=== PATIENT | male | born 1950 | race African-American/Black ===

== ENCOUNTER 2017-02-26 09:47 | Inpatient (IN) | payer MEDICARE, MEDICAID ==
[~2017-02-26] VITALS: Ht 182.9 cm; Wt 95.3 kg
[~2017-02-26 09:47] MED LIST: FINA5TAB11; HY1; HYDR1POW18; NIFE60TA18 PO; TAMS-11
[2017-02-26] MEDS ORDERED: MORPHINE SULFATE 4 MG/ML CPJ (NOT FOR IM USE) IV STA (10:31)
[2017-02-26] MEDS ORDERED: ONDANSETRON HCL 4MG/2ML VIAL IV STA (10:31)
[2017-02-26 11:20] LABS: BASOPHILS % 0.4 % (0.0-2.0); EOSINOPHILS % 0.1 % (0.0-5.0); HEMATOCRIT. 32.2 % (42.0-52.0); HEMOGLOBIN. 10.2 g/dL (14.0-18.0); MEAN CORPUSCULAR HEMOGLOBIN 19.6 pg (28.0-32.0); MEAN CORPUSCULAR VOLUME 61.7 fL (80.0-94.0); MONOCYTES % 9.8 % (2.0-8.0); NEUTROPHILS % 75.7 % (40.0-76.0); RED BLOOD CELL COUNT 5.22 mill/uL (4.7-6.1); RED CELL DISTRIBUTION WIDTH 18.2 % (11.6-14.6)
[2017-02-26 11:27] LABS: INR 1.1; PROTHROMBIN TIME 11.1 sec
[2017-02-26 11:36] LABS: CARBON DIOXIDE 28 mEq/L (21-32); CHLORIDE 102 mEq/L (98-107)
[2017-02-26 11:53] LABS: KETONES URINE TRACE (NEGATIVE); LEUKOCYTE ESTERASE URINE 1+ (NEGATIVE); NITRITE URINE NEGATIVE (NEGATIVE); OCCULT BLOOD URINE 3+ (NEGATIVE); PROTEIN URINE 4+ (NEGATIVE); SPECIFIC GRAVITY URINE 1.023 (1.005-1.030); UROBILINOGEN URINE 0.2 E.U./dL (0.2-1.0)
[2017-02-26 11:54] LABS: CLARITY URINE TURBID (CLEAR); COLOR URINE BLOODY (YELLOW)
[2017-02-26 12:12] LABS: PLATELET ESTIMATE NORMAL
[2017-02-26 12:13] LABS: PLATELET 182 x1000/uL (130-400)
[2017-02-26] MEDS ORDERED: KCL 10MEQ/50ML PREMIX 50 ML IV ONE (12:30)
[2017-02-26 12:46] LABS: BASOPHILS % 0.3 % (0.0-2.0); EOSINOPHILS % 0.1 % (0.0-5.0); HEMATOCRIT. 31.6 % (42.0-52.0); HEMOGLOBIN. 9.9 g/dL (14.0-18.0); LYMPHOCYTES % 9.9 % (20.0-50.0); MEAN CORPUSCULAR HEMOGLOBIN 19.5 pg (28.0-32.0); MEAN PLATELET VOLUME 8.6 fl (7.4-10.4); MONOCYTES % 8.6 % (2.0-8.0); NEUTROPHILS % 81.1 % (40.0-76.0); PLATELET 179 x1000/uL (130-400); RED BLOOD CELL COUNT 5.09 mill/uL (4.7-6.1); RED CELL DISTRIBUTION WIDTH 18.5 % (11.6-14.6)
[2017-02-26] MEDS ORDERED: CEFTRIAXONE 1 G PREMIX 50 ML IV ONE (14:00)
[2017-02-27 05:22] LABS: BASOPHILS % 0.5 % (0.0-2.0); EOSINOPHILS % 0.5 % (0.0-5.0); HEMATOCRIT. 32.9 % (42.0-52.0); HEMOGLOBIN. 10.3 g/dL (14.0-18.0); LYMPHOCYTES % 26.5 % (20.0-50.0); MEAN CORPUSCULAR HEMOGLOBIN 19.6 pg (28.0-32.0); MEAN CORPUSCULAR VOLUME 62.3 fL (80.0-94.0); MONOCYTES % 11.7 % (2.0-8.0); NEUTROPHILS % 60.8 % (40.0-76.0); RED BLOOD CELL COUNT 5.27 mill/uL (4.7-6.1); RED CELL DISTRIBUTION WIDTH 18.1 % (11.6-14.6)
[2017-02-27 05:42] LABS: CARBON DIOXIDE 29 mEq/L (21-32); CHLORIDE 106 mEq/L (98-107)
[2017-02-27 08:39] LABS: MEAN PLATELET VOLUME 8.7 fl (7.4-10.4); PLATELET 179 x1000/uL (130-400)
[2017-02-27] MEDS ORDERED: NIFEDIPINE 10MG CAPSULE PO SCH (09:00)
[2017-02-27] MEDS: HYDROCODONE/ACETAMINOPHEN 5/325MG TABLET PO PRN ×2 (09:11→17:58)
[2017-02-27] MEDS: AMLODIPINE 10MG TABLET PO SCH (09:19)
[2017-02-27] MEDS: TAMSULOSIN HCL 0.4MG SR CAPSULE PO SCH (09:20)
[2017-02-27] MEDS: CEFTRIAXONE 1 G PREMIX 50 ML IV SCH (09:20)
[2017-02-27] MEDS: POTASSIUM CHLORIDE 20MEQ TABLET SR PO SCH (11:28)
[2017-02-27] MEDS ORDERED: TAMSULOSIN HCL 0.4MG SR CAPSULE PO SCH (13:00)
[2017-02-27 15:43] LABS: CARBON DIOXIDE 28 mEq/L (21-32); CHLORIDE 107 mEq/L (98-107)
[2017-02-27] MEDS: BICALUTAMIDE 50 MG TABLET PO SCH (16:02)
[2017-02-28] MEDS: HYDROCODONE/ACETAMINOPHEN 5/325MG TABLET PO PRN (00:21)
[2017-02-28] MEDS: POTASSIUM CHLORIDE 20MEQ TABLET SR PO SCH (09:13)
[2017-02-28] MEDS: TAMSULOSIN HCL 0.4MG SR CAPSULE PO SCH (09:14)
[2017-02-28] MEDS: AMLODIPINE 10MG TABLET PO SCH (09:15)
[2017-02-28] MEDS: CEFTRIAXONE 1 G PREMIX 50 ML IV SCH (09:15)
[2017-02-28] MEDS: BICALUTAMIDE 50 MG TABLET PO SCH (09:41)
[2017-02-28] MEDS ORDERED: POTASSIUM CHLORIDE 20MEQ TABLET SR PO NR (20:30)
[2017-02-28] MEDS ORDERED: POTASSIUM CHLORIDE 8 MEQ TABLET.SA PO SCH (22:00)
[2017-03-01 06:32] LABS: BASOPHILS % 0.4 % (0.0-2.0); EOSINOPHILS % 1.2 % (0.0-5.0); HEMATOCRIT. 27.9 % (42.0-52.0); HEMOGLOBIN. 8.8 g/dL (14.0-18.0); LYMPHOCYTES % 29.8 % (20.0-50.0); MEAN CORPUSCULAR HEMOGLOBIN 19.4 pg (28.0-32.0); MEAN CORPUSCULAR VOLUME 61.8 fL (80.0-94.0); MONOCYTES % 10.5 % (2.0-8.0); NEUTROPHILS % 58.1 % (40.0-76.0); RED BLOOD CELL COUNT 4.52 mill/uL (4.7-6.1); RED CELL DISTRIBUTION WIDTH 18.7 % (11.6-14.6)
[2017-03-01 07:15] LABS: CARBON DIOXIDE 25 mEq/L (21-32); CHLORIDE 108 mEq/L (98-107)
[2017-03-01 07:44] LABS: MEAN PLATELET VOLUME 8.7 fl (7.4-10.4)
[2017-03-01 07:45] LABS: PLATELET 182 x1000/uL (130-400)
[2017-03-01] MEDS: BICALUTAMIDE 50 MG TABLET PO SCH (09:50)
[2017-03-01] MEDS: CEFTRIAXONE 1 G PREMIX 50 ML IV SCH (09:50)
[2017-03-01] MEDS: TAMSULOSIN HCL 0.4MG SR CAPSULE PO SCH (09:51)
[2017-03-01] MEDS: AMLODIPINE 10MG TABLET PO SCH (09:51)
[2017-03-01 21:30] VITALS: BP 135/76
== END 2017-03-01 23:19 | disposition home or self-care (01) | DRG 501 ==
LOC: ER 09:47 → 5WST 14:37 → EDBEDREQ 14:41 → EDBEDREQSVC 14:41 → ENRESERV 15:57
PROC: 0T2BX0Z Change Drainage Device in Bladder, External Approach (ICD-10-PCS; principal; 2017-02-26)
DX: N40.1 Benign prostatic hyperplasia with lower urinary tract symptoms (principal); N13.8 Other obstructive and reflux uropathy; I10 Essential (primary) hypertension; N43.3 Hydrocele, unspecified; N39.0 Urinary tract infection, site not specified; E87.6 Hypokalemia; R31.0 Gross hematuria; K57.90 Diverticulosis of intestine, part unspecified, without perforation or abscess without bleeding; D50.0 Iron deficiency anemia secondary to blood loss (chronic); Z85.46 Personal history of malignant neoplasm of prostate; Z86.73 Personal history of transient ischemic attack (TIA), and cerebral infarction without residual deficits; Z79.899 Other long term (current) drug therapy
CPT/HCPCS: 36415; 51702; 74176; 80053; 81001; 84132; 84153; 85025; 85610; 86850; 86900; 86920; 96361; 96365; 99285; J0696; J2270; J2405; J3480; J7050; A4315

== ENCOUNTER 2017-03-03 21:00 | Emergency (ER) | payer MEDICARE, MEDICAID ==
[~2017-03-03] VITALS: Ht 182.9 cm; Wt 96.0 kg
[2017-03-04 01:01] LABS: BASOPHILS % 0.7 % (0.0-2.0); EOSINOPHILS % 1.3 % (0.0-5.0); HEMATOCRIT. 26.8 % (42.0-52.0); HEMOGLOBIN. 8.5 g/dL (14.0-18.0); LYMPHOCYTES % 25.3 % (20.0-50.0); MEAN CORPUSCULAR HEMOGLOBIN 19.5 pg (28.0-32.0); MEAN CORPUSCULAR VOLUME 61.9 fL (80.0-94.0); MEAN PLATELET VOLUME 8.6 fl (7.4-10.4); MONOCYTES % 14.1 % (2.0-8.0); NEUTROPHILS % 58.6 % (40.0-76.0); PLATELET 190 x1000/uL (130-400); RED BLOOD CELL COUNT 4.33 mill/uL (4.7-6.1)
[2017-03-04 01:05] LABS: CHLORIDE 106 mEq/L (98-107)
[2017-03-04 01:08] LABS: PLATELET ESTIMATE NORMAL
[2017-03-04 01:12] LABS: CARBON DIOXIDE 25 mEq/L (21-32)
[2017-03-04 03:49] VITALS: BP 138/78
== END 2017-03-04 04:20 | disposition home or self-care (01) ==
LOC: ER 03-04 00:25
DX: T83.81XA Embolism due to genitourinary prosthetic devices, implants and grafts, initial encounter (principal); R31.9 Hematuria, unspecified; I10 Essential (primary) hypertension; Y92.89 Other specified places as the place of occurrence of the external cause
CPT/HCPCS: 36415; 80048; 85025; 99284; A4217; Z7610; A4315

== ENCOUNTER 2017-03-04 14:05 | Emergency (ER) | payer MEDICARE, MEDICAID ==
[~2017-03-04] VITALS: Ht 182.9 cm; Wt 96.0 kg
[2017-03-04 16:26] LABS: BASOPHILS % 0.4 % (0.0-2.0); EOSINOPHILS % 0.5 % (0.0-5.0); HEMATOCRIT. 24.9 % (42.0-52.0); LYMPHOCYTES % 19.4 % (20.0-50.0); MEAN CORPUSCULAR HEMOGLOBIN 19.7 pg (28.0-32.0); MEAN CORPUSCULAR VOLUME 61.2 fL (80.0-94.0); MEAN PLATELET VOLUME 8.7 fl (7.4-10.4); MONOCYTES % 10.5 % (2.0-8.0); NEUTROPHILS % 69.2 % (40.0-76.0); PLATELET 195 x1000/uL (130-400); RED BLOOD CELL COUNT 4.06 mill/uL (4.7-6.1); RED CELL DISTRIBUTION WIDTH 18.8 % (11.6-14.6)
[2017-03-04 16:31] LABS: INR 1.1; PROTHROMBIN TIME 11.4 sec
[2017-03-04 16:33] LABS: CARBON DIOXIDE 27 mEq/L (21-32); CHLORIDE 104 mEq/L (98-107)
[2017-03-04 16:43] LABS: COLOR URINE BLOODY (YELLOW); KETONES URINE 1+ (NEGATIVE); LEUKOCYTE ESTERASE URINE 2+ (NEGATIVE); NITRITE URINE POSITIVE (NEGATIVE); OCCULT BLOOD URINE 3+ (NEGATIVE); PROTEIN URINE 4+ (NEGATIVE); SPECIFIC GRAVITY URINE 1.037 (1.005-1.030)
[2017-03-04 16:44] LABS: CLARITY URINE TURBID (CLEAR)
[2017-03-05 03:05] VITALS: BP 129/70
== END 2017-03-05 03:31 | disposition home or self-care (01) ==
LOC: ER 15:25
DX: R31.0 Gross hematuria (principal); D64.9 Anemia, unspecified; I10 Essential (primary) hypertension
CPT/HCPCS: 36415; 36430; 80048; 81001; 85025; 85610; 86850; 86900; 86901; 86920; 99285; J7040; P9016

== ENCOUNTER 2021-12-30 06:09 | Emergency (ER) | payer MEDICARE, MEDICAID ==
[~2021-12-30] VITALS: Ht 182.9 cm; Wt 96.0 kg
[2021-12-30 06:24] VITALS: BP 137/80
[2021-12-30 08:40] LABS: BASOPHILS % 0.5 % (0.0-2.0); EOSINOPHILS % 0.6 % (0.0-5.0); HEMATOCRIT. 35.2 % (42.0-52.0); HEMOGLOBIN. 11.6 g/dL (14.0-18.0); LYMPHOCYTES % 31.1 % (20.0-50.0); MEAN CORPUSCULAR HEMOGLOBIN 22.4 pg (28.0-32.0); MEAN CORPUSCULAR VOLUME 68.2 fL (80.0-94.0); MONOCYTES % 9.8 % (2.0-8.0); PLATELET 160 x1000/uL (130-400); RED BLOOD CELL COUNT 5.16 mill/uL (4.7-6.1); RED CELL DISTRIBUTION WIDTH 16.2 % (11.6-14.6)
[2021-12-30 08:53] LABS: CHLORIDE 109 mEq/L (98-107)
[2021-12-30 09:11] LABS: CLARITY URINE CLEAR (CLEAR); COLOR URINE YELLOW (YELLOW); KETONES URINE NEGATIVE (NEGATIVE); LEUKOCYTE ESTERASE URINE NEGATIVE (NEGATIVE); NITRITE URINE NEGATIVE (NEGATIVE); OCCULT BLOOD URINE NEGATIVE (NEGATIVE); PH URINE 5.5 (4.5-8.0); PROTEIN URINE NEGATIVE (NEGATIVE); SPECIFIC GRAVITY URINE 1.012 (1.005-1.030); UROBILINOGEN URINE 0.2 E.U./dL (0.2-1.0)
[2021-12-30 09:18] LABS: PLATELET ESTIMATE NORMAL
[2021-12-30] MEDS ORDERED: FAMO20TA8 MT (10:23)
== END 2021-12-30 10:41 | disposition home or self-care (01) ==
LOC: ER 06:09
DX: K92.2 Gastrointestinal hemorrhage, unspecified (principal); I10 Essential (primary) hypertension
CPT/HCPCS: 36415; 80053; 81003; 84484; 85025; 86850; 86900; 93005; 99284

== ENCOUNTER 2022-03-23 12:28 | Inpatient (IN) | payer MEDICARE, OTHER ==
[~2022-03-23] VITALS: Ht 182.9 cm; Wt 97.7 kg
[~2022-03-23 12:28] MED LIST changes: +FAMO20TA8 MT; -FINA5TAB11; -HY1; -HYDR1POW18; -NIFE60TA18 PO; -TAMS-11
[2022-03-23 17:55] LABS: HEMATOCRIT. 28.2 % (42.0-52.0); HEMOGLOBIN. 8.3 g/dL (14.0-18.0); MEAN CORPUSCULAR VOLUME 57.7 fL (80.0-94.0); MEAN PLATELET VOLUME 8.8 fl (7.4-10.4); PLATELET 246 x1000/uL (130-400); RED BLOOD CELL COUNT 4.89 mill/uL (4.7-6.1); RED CELL DISTRIBUTION WIDTH 23.2 % (11.6-14.6)
[2022-03-23 18:02] LABS: CHLORIDE 102 mEq/L (98-107)
[2022-03-23 18:14] LABS: PLATELET ESTIMATE NORMAL
[2022-03-23] MEDS ORDERED: PANTOPRAZOLE SODIUM 40 MG/VIAL IV NR (18:30)
[2022-03-23 19:41] LABS: INR 1.1; PARTIAL THROMBOPLASTIN TIME 24.2 sec (23.4-31.0); PROTHROMBIN TIME 11.5 sec (9.6-11.0)
[2022-03-23 21:13] LABS: CLARITY URINE CLEAR (CLEAR); COLOR URINE YELLOW (YELLOW); KETONES URINE NEGATIVE (NEGATIVE); LEUKOCYTE ESTERASE URINE NEGATIVE (NEGATIVE); NITRITE URINE NEGATIVE (NEGATIVE); OCCULT BLOOD URINE NEGATIVE (NEGATIVE); PH URINE 5.5 (4.5-8.0); PROTEIN URINE NEGATIVE (NEGATIVE); SPECIFIC GRAVITY URINE 1.005 (1.005-1.030); UROBILINOGEN URINE 0.2 E.U./dL (0.2-1.0)
[2022-03-24] MEDS ORDERED: FAMO20TA8 PO (10:27)
[2022-03-24] MEDS ORDERED: AMLO10TA80 PO (10:27)
[2022-03-24] MEDS ORDERED: ACETAMINOPHEN 325MG TABLET PO PRN (10:30)
[2022-03-24] MEDS ORDERED: ONDANSETRON HCL 4MG/2ML INJ IV PRN (10:30)
[2022-03-24 11:11] VITALS: BP 133/69
[2022-03-24 12:00] VITALS: BP 126/61
[2022-03-24] MEDS: PANTOPRAZOLE SODIUM 40 MG/VIAL IV SCH ×2 (14:24→20:43)
[2022-03-24 16:00] VITALS: BP 150/66
[2022-03-24] MEDS ORDERED: IOHEXOL-300 100 ML BOTTLE ONE (17:33)
[2022-03-24] MEDS: AMLODIPINE 10MG TABLET PO SCH (18:36)
[2022-03-24] MEDS ORDERED: FERR325T6 PO (18:38)
[2022-03-24 19:29] LABS: HEMATOCRIT 23.4 % (42.0-52.0)
[2022-03-24 19:42] LABS: HEMOGLOBIN 6.9 g/dL (14.0-18.0)
[2022-03-24] MEDS: ASCORBIC ACID 500 MG TABLET PO SCH (19:45)
[2022-03-24 20:00] VITALS: BP 152/57
[2022-03-24] MEDS: FERROUS SULFATE 325MG TABLET PO SCH (20:42)
[2022-03-24 21:08] LABS: TOTAL IRON BINDING CAPACITY 356 ug/dL (250-450)
[2022-03-24 21:35] LABS: VITAMIN B12 SERUM 1210 pg/mL (211-911)
[2022-03-24 22:03] LABS: FERRITIN < 5 ng/mL (22-322)
[2022-03-25] VITALS (10 sets, daily range): BP systolic 130–165; BP diastolic 52–77
[2022-03-25 02:00] LABS: HEMATOCRIT 22.8 % (42.0-52.0); HEMOGLOBIN 7.1 g/dL (14.0-18.0)
[2022-03-25 06:30] LABS: HEMATOCRIT. 22.3 % (42.0-52.0); HEMOGLOBIN. 7.1 g/dL (14.0-18.0); MEAN CORPUSCULAR HEMOGLOBIN 19.2 pg (28.0-32.0); RED BLOOD CELL COUNT 3.72 mill/uL (4.7-6.1); RED CELL DISTRIBUTION WIDTH 27.6 % (11.6-14.6)
[2022-03-25 06:59] LABS: CHLORIDE 108 mEq/L (98-107)
[2022-03-25] MEDS: LORAZEPAM 1MG TABLET PO PRN (07:09)
[2022-03-25] MEDS: AMLODIPINE 10MG TABLET PO SCH (09:00)
[2022-03-25 09:49] LABS: PLATELET 216 x1000/uL (130-400)
[2022-03-25 09:58] LABS: PLATELET ESTIMATE NORMAL
[2022-03-25] MEDS: PANTOPRAZOLE SODIUM 40 MG/VIAL IV SCH ×2 (10:37→20:28)
[2022-03-25] MEDS: FERROUS SULFATE 325MG TABLET PO SCH (10:37)
[2022-03-25] MEDS: ASCORBIC ACID 500 MG TABLET PO SCH (10:38)
[2022-03-25] MEDS: IRON SUCROSE COMPLEX 100 MG/5 ML ML IV SCH ×2 (15:00→16:00)
[2022-03-25 18:21] LABS: HEMATOCRIT 29.4 % (42.0-52.0); HEMOGLOBIN 8.8 g/dL (14.0-18.0)
[2022-03-26] VITALS: BP 168/88
[2022-03-26 02:09] LABS: HEMATOCRIT 24.4 % (42.0-52.0); HEMOGLOBIN 7.9 g/dL (14.0-18.0)
[2022-03-26] MEDS: LORAZEPAM 1MG TABLET PO PRN ×2 (03:42→20:24)
[2022-03-26 04:00] VITALS: BP 142/79
[2022-03-26] MEDS: AMLODIPINE 10MG TABLET PO SCH (08:47)
[2022-03-26] MEDS: PANTOPRAZOLE SODIUM 40 MG/VIAL IV SCH ×2 (08:47→20:43)
[2022-03-26 12:36] LABS: HEMATOCRIT. 24.6 % (42.0-52.0); HEMOGLOBIN. 7.9 g/dL (14.0-18.0); MEAN CORPUSCULAR HEMOGLOBIN 20.3 pg (28.0-32.0); MEAN CORPUSCULAR VOLUME 63.2 fL (80.0-94.0); RED BLOOD CELL COUNT 3.89 mill/uL (4.7-6.1); RED CELL DISTRIBUTION WIDTH 31.5 % (11.6-14.6)
[2022-03-26 12:45] LABS: CHLORIDE 108 mEq/L (98-107)
[2022-03-26 14:34] LABS: PLATELET 192 x1000/uL (130-400)
[2022-03-26 14:38] LABS: NUCLEATED RED BLOOD CELLS 1 /100 WBC; PLATELET ESTIMATE NORMAL
[2022-03-26 16:11] LABS: HEMATOCRIT 25.9 % (42.0-52.0)
[2022-03-26 20:00] VITALS: BP 148/69
[2022-03-26] MEDS: ACETAMINOPHEN 325MG TABLET PO PRN (20:24)
[2022-03-26] MEDS ORDERED: POTASSIUM CHLORIDE 20MEQ/PACKET PO NR (22:00)
[2022-03-27] VITALS: BP 128/73
[2022-03-27 04:00] VITALS: BP 119/66
[2022-03-27 07:54] LABS: HEMATOCRIT. 25.9 % (42.0-52.0); HEMOGLOBIN. 8.1 g/dL (14.0-18.0); MEAN CORPUSCULAR VOLUME 64.1 fL (80.0-94.0); RED BLOOD CELL COUNT 4.04 mill/uL (4.7-6.1)
[2022-03-27 08:00] VITALS: BP 152/79
[2022-03-27 08:11] LABS: CHLORIDE 108 mEq/L (98-107)
[2022-03-27] MEDS: PANTOPRAZOLE SODIUM 40 MG/VIAL IV SCH (08:17)
[2022-03-27] MEDS: ACETAMINOPHEN 325MG TABLET PO PRN (08:17)
[2022-03-27] MEDS: AMLODIPINE 10MG TABLET PO SCH (08:18)
[2022-03-27 10:11] LABS: PLATELET 181 x1000/uL (130-400)
[2022-03-27 10:21] LABS: PLATELET ESTIMATE NORMAL
[2022-03-27] MEDS ORDERED: FERR325T6 PO (13:11)
[2022-03-27] MEDS ORDERED: AMLO10TA80 PO (13:11)
[2022-03-27] MEDS ORDERED: FAMO20TA8 MT (13:11)
[2022-03-27 14:45] VITALS: BP 142/66
[2022-03-27] MEDS: IRON SUCROSE COMPLEX 100 MG/5 ML ML IV SCH (14:58)
== END 2022-03-27 15:38 | disposition home or self-care (01) | DRG 244 ==
LOC: ER 12:36 → MICUSO 21:24 → 6EST 03-24 07:29
PROVIDERS: ADMIT Internal Medicine; ATTEND Internal Medicine
PROC: 30233N1 Transfusion of Nonautologous Red Blood Cells into Peripheral Vein, Percutaneous Approach (ICD-10-PCS; principal; 2022-03-25)
DX: K57.31 Diverticulosis of large intestine without perforation or abscess with bleeding (principal); I69.351 Hemiplegia and hemiparesis following cerebral infarction affecting right dominant side; D50.9 Iron deficiency anemia, unspecified; E66.9 Obesity, unspecified; N40.0 Benign prostatic hyperplasia without lower urinary tract symptoms; K64.9 Unspecified hemorrhoids; K21.9 Gastro-esophageal reflux disease without esophagitis; K40.90 Unilateral inguinal hernia, without obstruction or gangrene, not specified as recurrent; I51.7 Cardiomegaly; I10 Essential (primary) hypertension; Z68.29 Body mass index [BMI] 29.0-29.9, adult
CPT/HCPCS: 36415; 74177; 80048; 80053; 81003; 82607; 82728; 82746; 82962; 83540; 83550; 85014; 85018; 85025; 85044; 86850; 86900; 86920; 93005; 99285; C9113; P9016; Q9967

== ENCOUNTER 2022-04-17 08:15 | Inpatient (IN) | payer MEDICARE, OTHER ==
[~2022-04-17] VITALS: Ht 182.9 cm; Wt 90.3 kg
[~2022-04-17 08:15] MED LIST changes: +AMLO10TA80 PO; +FAMO20TA8 PO; +FERR325T6 PO
[2022-04-17 09:59] LABS: CHLORIDE 107 mEq/L (98-107)
[2022-04-17 10:00] LABS: HEMATOCRIT. 33.8 % (42.0-52.0); HEMOGLOBIN. 10.4 g/dL (14.0-18.0); MEAN CORPUSCULAR HEMOGLOBIN 20.6 pg (28.0-32.0); MEAN CORPUSCULAR VOLUME 67.2 fL (80.0-94.0); RED BLOOD CELL COUNT 5.03 mill/uL (4.7-6.1); RED CELL DISTRIBUTION WIDTH 30.3 % (11.6-14.6)
[2022-04-17 10:47] LABS: PLATELET ESTIMATE NORMAL
[2022-04-17 10:53] LABS: MEAN PLATELET VOLUME 9.1 fl (7.4-10.4); PLATELET 230 x1000/uL (130-400)
[2022-04-17] MEDS ORDERED: MECLIZINE 25MG TABLET PO ONE (12:00)
[2022-04-17] MEDS ORDERED: SODIUM CHLORIDE 0.9% 500 ML IV ONE (12:00)
[2022-04-17] MEDS ORDERED: MECLIZINE 25MG TABLET PO PRN (13:30)
[2022-04-17] MEDS ORDERED: ONDANSETRON HCL 4MG/2ML INJ IV PRN (13:30)
[2022-04-17] MEDS ORDERED: POTASSIUM CHLORIDE 20MEQ TABLET SR PO SCH (13:30)
[2022-04-17] MEDS: ENOXAPARIN 40MG/0.4ML SYR SUBCUT SCH (14:00)
[2022-04-17 15:00] VITALS: BP 150/64
[2022-04-17 20:00] VITALS: BP 116/45
[2022-04-17] MEDS: ATORVASTATIN CALCIUM 40MG TABLET PO SCH (21:33)
[2022-04-18 00:35] VITALS: BP 127/65
[2022-04-18 04:00] VITALS: BP 140/66
[2022-04-18 08:00] VITALS: BP 138/69
[2022-04-18] MEDS: ASPIRIN 81MG TABLET PO SCH (08:59)
[2022-04-18 12:00] VITALS: BP 124/53
[2022-04-18] MEDS: ENOXAPARIN 40MG/0.4ML SYR SUBCUT SCH (13:29)
[2022-04-18] MEDS: ACETAMINOPHEN 325MG TABLET PO PRN (15:39)
[2022-04-18 16:00] VITALS: BP 131/60
[2022-04-18 20:00] VITALS: BP 128/62
[2022-04-18] MEDS: ATORVASTATIN CALCIUM 40MG TABLET PO SCH (21:00)
[2022-04-19] VITALS: BP 124/82
[2022-04-19 04:00] VITALS: BP 121/62
[2022-04-19 08:00] VITALS: BP 110/62
[2022-04-19] MEDS: CLOPIDOGREL 75MG TABLET PO SCH (09:02)
[2022-04-19] MEDS: ASPIRIN 81MG TABLET PO SCH (09:02)
[2022-04-19 12:00] VITALS: BP 150/70
[2022-04-19] MEDS: ENOXAPARIN 40MG/0.4ML SYR SUBCUT SCH (14:17)
[2022-04-19 18:00] VITALS: BP 131/58
[2022-04-19 20:00] VITALS: BP 107/66
[2022-04-19] MEDS: ATORVASTATIN CALCIUM 40MG TABLET PO SCH (20:26)
[2022-04-20] VITALS: BP 124/78
[2022-04-20] MEDS: ACETAMINOPHEN 325MG TABLET PO PRN (00:28)
[2022-04-20 04:00] VITALS: BP 129/70
[2022-04-20 08:00] VITALS: BP 138/85
[2022-04-20] MEDS: CLOPIDOGREL 75MG TABLET PO SCH (09:36)
[2022-04-20] MEDS: ASPIRIN 81MG TABLET PO SCH (09:36)
[2022-04-20 12:00] VITALS: BP 96/51
[2022-04-20] MEDS ORDERED: CLOP75TA15 PO (13:37)
[2022-04-20] MEDS: ENOXAPARIN 40MG/0.4ML SYR SUBCUT SCH (14:03)
[2022-04-20 16:00] VITALS: BP 117/65
== END 2022-04-20 18:35 | disposition home or self-care (01) | DRG 45 ==
LOC: ER 08:15 → 7WST 11:51 → EDBEDREQ 11:54 → ENRESERV 12:44
PROVIDERS: ADMIT Internal Medicine; ATTEND Internal Medicine
DX: I63.9 Cerebral infarction, unspecified (principal); E44.1 Mild protein-calorie malnutrition; I10 Essential (primary) hypertension; D64.9 Anemia, unspecified; D72.819 Decreased white blood cell count, unspecified; E87.6 Hypokalemia; H53.2 Diplopia; I69.392 Facial weakness following cerebral infarction; Z82.49 Family history of ischemic heart disease and other diseases of the circulatory system; I69.351 Hemiplegia and hemiparesis following cerebral infarction affecting right dominant side
CPT/HCPCS: 36415; 70551; 71045; 80053; 80061; 83880; 84484; 85025; 93005; 93880; 97162; 99285; A6261; J1650; J7040; J8597; A4315

== ENCOUNTER 2023-09-07 10:48 | Emergency (ER) | payer MEDICAID, MEDICARE ==
[~2023-09-07] VITALS: Ht 177.8 cm; Wt 100.0 kg
[~2023-09-07 10:48] MED LIST changes: +CLOP75TA15 PO
[2023-09-07 11:10] VITALS: O2SAT 100
[2023-09-07 13:12] LABS: ALANINE AMINOTRANSFERASE 15 IU/L (10-49); ALBUMIN 4.3 g/dL (3.2-4.8); ASPARTATE AMINOTRANSFERASE 22 IU/L (<34); BILIRUBIN TOTAL 0.5 mg/dL (0.1-1.0); CALCIUM 9.7 mg/dL (8.7-10.4); CARBON DIOXIDE 23 mEq/L (21-32); CHLORIDE 106 mEq/L (98-107); CREATININE 1.1 mg/dL (0.6-1.3); GLUCOSE 85 mg/dL (70-105); POTASSIUM 3.6 mEq/L (3.5-5.1); PROTEIN TOTAL 8.1 g/dL (6.0-8.3); SODIUM 137 mEq/L (136-145); UREA NITROGEN BLOOD 12 mg/dL (9-23)
[2023-09-07 13:18] LABS: BASOPHILS % 0.8 % (0.0-2.0); DIFFERENTIAL COMMENT 0; EOSINOPHILS % 1.8 % (0.0-5.0); HEMATOCRIT. 44.1 % (42.0-52.0); HEMOGLOBIN. 13.7 g/dL (14.0-18.0); MEAN CORPUSCULAR HEMOGLOBIN 22.2 pg (28.0-32.0); MEAN CORPUSCULAR HGB CONC 31.2 g/dL (31.0-37.0); MEAN CORPUSCULAR VOLUME 71.2 fL (80.0-94.0); MEAN PLATELET VOLUME 9.3 fl (7.4-10.4); MONOCYTES % 10.9 % (2.0-8.0); NEUTROPHILS % 52.5 % (40.0-76.0); PLATELET 172 x1000/uL (130-400); RED CELL DISTRIBUTION WIDTH 15.6 % (11.6-14.6); WHITE BLOOD COUNT 3.5 x1000/uL (4.5-11.0)
[2023-09-07 14:00] VITALS: BP 133/70; PULSE 65; RESP 18; TEMP 98.5
== END 2023-09-07 14:01 | disposition home or self-care (01) ==
LOC: ER 10:48
DX: I10 Essential (primary) hypertension (principal); Z98.890 Other specified postprocedural states; Z86.73 Personal history of transient ischemic attack (TIA), and cerebral infarction without residual deficits
CPT/HCPCS: 36415; 80053; 85025; 99284

== ENCOUNTER 2023-09-13 07:39 | Emergency (ER) | payer MEDICARE ==
[~2023-09-13] VITALS: Ht 182.9 cm; Wt 118.0 kg
[2023-09-13 07:51] VITALS: BP 185/83; PULSE 85; RESP 16; TEMP 98.6; O2SAT 100
[2023-09-13 08:47] LABS: BASOPHILS % 0.4 % (0.0-2.0); DIFFERENTIAL COMMENT 0; EOSINOPHILS % 1.2 % (0.0-5.0); HEMATOCRIT. 42.3 % (42.0-52.0); HEMOGLOBIN. 13.3 g/dL (14.0-18.0); MEAN CORPUSCULAR HEMOGLOBIN 22.4 pg (28.0-32.0); MEAN CORPUSCULAR HGB CONC 31.5 g/dL (31.0-37.0); MEAN CORPUSCULAR VOLUME 71.1 fL (80.0-94.0); MEAN PLATELET VOLUME 9.3 fl (7.4-10.4); MONOCYTES % 9.8 % (2.0-8.0); NEUTROPHILS % 53.6 % (40.0-76.0); PLATELET 174 x1000/uL (130-400); RED BLOOD CELL COUNT 5.94 mill/uL (4.7-6.1); RED CELL DISTRIBUTION WIDTH 15.1 % (11.6-14.6); WHITE BLOOD COUNT 3.3 x1000/uL (4.5-11.0)
[2023-09-13 08:55] LABS: ALANINE AMINOTRANSFERASE 16 IU/L (10-49); ALBUMIN 4.4 g/dL (3.2-4.8); ASPARTATE AMINOTRANSFERASE 20 IU/L (<34); BILIRUBIN TOTAL 0.3 mg/dL (0.1-1.0); CALCIUM 10.5 mg/dL (8.7-10.4); CARBON DIOXIDE 25 mEq/L (21-32); CHLORIDE 104 mEq/L (98-107); CREATININE 1.1 mg/dL (0.6-1.3); GLUCOSE 92 mg/dL (70-105); POTASSIUM 3.9 mEq/L (3.5-5.1); PROTEIN TOTAL 8.2 g/dL (6.0-8.3); SODIUM 139 mEq/L (136-145); UREA NITROGEN BLOOD 13 mg/dL (9-23)
[2023-09-13] MEDS ORDERED: HYDRALAZINE 20MG/ML VIAL IV ONE (09:30)
== END 2023-09-13 10:37 | disposition left against medical advice (07) ==
LOC: ER 07:39 → EDBEDREQTM 10:36 → EDBEDREQ 10:36 → ER 10:37
DX: I16.0 Hypertensive urgency (principal); I10 Essential (primary) hypertension; D64.9 Anemia, unspecified; Z86.73 Personal history of transient ischemic attack (TIA), and cerebral infarction without residual deficits; Z79.899 Other long term (current) drug therapy
CPT/HCPCS: 36415; 80053; 85025; 99283

== ENCOUNTER 2023-10-15 18:38 | Emergency (ER) | payer MEDICARE ==
[~2023-10-15] VITALS: Ht 182.9 cm; Wt 90.7 kg
[2023-10-15 19:07] VITALS: BP 160/85; PULSE 82; RESP 16; TEMP 97.7; O2SAT 100
== END 2023-10-15 22:41 | disposition left against medical advice (07) ==
LOC: ER 18:38
DX: R51.9 Headache, unspecified (principal); Z53.21 Procedure and treatment not carried out due to patient leaving prior to being seen by health care provider
CPT/HCPCS: 99281